=== PATIENT | male | born 1990 | race Caucasian/White ===

== ENCOUNTER 2020-06-23 18:33 | Observation (INO) | payer BC ==
[2020-06-23] MEDS ORDERED: Zofran 4 MG/2 ML VIAL IV ONE (18:47)
[2020-06-23] MEDS ORDERED: TORAdol 30 mg Injection IV ONE (18:47)
[2020-06-23] MEDS ORDERED: TORAdol 30 mg Injection ONE (18:48)
[2020-06-23] MEDS ORDERED: Zofran 4 MG/2 ML VIAL ONE (18:48)
--- NOTE | 2020-06-23 19:09 | ERPHSYRPT ---
- History of Present Illness Historian: patient Patient Subjective Stated Complaint: Abdominal pain Triage Nursing Assessment: Patient ambulated back to ED and transferred self to bed. Patient A+O X3. Patient's skin pink, warm and dry. Patient complains of right sided abdominal/flank pain 4/10 intermittent sharp, throbbing pain that started at 0400. Patient's abdomen soft and round with BS X4. Patient denies dysuria, urgency or frequency or blood in urine. Physician History: 29 yo wm w R flank pain x15 hrs which started as periumbilical pain and migrated. Pain described as pressure/stabbing. It is 4/10 at present and was up to 8/10. He has had nausea wo vomiting/ diarrhea/fever/dysuria/hematuria/melena/hematochezia/cough/coryza. Timing/Duration: other (15 hours) Activities at Onset: rest Quality: pressure, stabbing Abdominal Pain Onset Location: flank Pain Radiation: no radiation Severity of Pain-Max: severe Severity of Pain-Current: moderate Modifying Factors: Improves With: nothing Associated Symptoms: back, nausea, No chest pain, No diaphoresis, No diarrhea, No fever/chills, No fatigue, No headache, No heartburn, No loss of appetite, No neck pain, No rash, No shortness of breath, No syncope, No testicular pain, No vomiting, No weakness Previous symptoms: no prior history Allergies/Adverse Reactions: No Known Drug Allergies Allergy (Verified 06/23/20 18:42) Home Medications: Ergocalciferol (Vitamin D2) [Vitamin D2] 1 tab PO WEEKLY 06/23/20 [History] Hx Tetanus, Diphtheria Vaccination/Date Given: Yes (2009) Hx Influenza Vaccination/Date Given: Yes Hx Pneumococcal Vaccination/Date Given: No Immunizations Up to Date: Yes Travel Risk - International Travel Have you traveled outside of the country in past 3 weeks: No - Coronavirus Screening Are you exhibiting any of the following symptoms?: No Close contact with a COVID-19 positive Pt in past 14-21 Days: No - Review of Systems Constitutional: No Symptoms Eyes: No Symptoms Ears, Nose, & Throat: No Symptoms Respiratory: No Symptoms Cardiac: No Symptoms Abdominal/Gastrointestinal: Nausea, No Abdominal Pain, No Vomiting, No Diarrhea, No Constipation, No Hematemesis, No Hematochezia, No Melena, No Dysphagia, No Appetite Changes Genitourinary Symptoms: No Symptoms, Flank Pain Musculoskeletal: No Symptoms Skin: No Symptoms Neurological: No Symptoms Psychological: No Symptoms Endocrine: No Symptoms Hematologic/Lymphatic: No Symptoms Immunological/Allergic: No Symptoms - Past Medical History Pertinent Past Medical History: Yes Cardiac History: Arrhythmia - Past Surgical History Past Surgical History: Yes Other Surgical History: sinus surgery-age 4, Brain tumor removed Feb 2019 - Social History Smoking Status: Never smoker Exposure to second hand smoke: No Drug Use: none Patient Lives Alone: No Significant Family History: no pertinent family hx - Nursing Vital Signs Nursing Vital Signs: Initial Vital Signs Temperature 99.7 F 06/23/20 18:44 Pulse Rate 82 06/23/20 18:44 Respiratory Rate 18 06/23/20 18:44 Blood Pressure 138/87 06/23/20 18:44 O2 Sat by Pulse Oximetry 96 06/23/20 18:44 Pain Scale Pain Intensity 0 - Physical Exam General Appearance: no apparent distress Eye Exam: PERRL/EOMI, eyes nml inspection Ears, Nose, Throat Exam: normal ENT inspection, TMs normal, pharynx normal, moist mucous membranes Neck Exam: normal inspection, non-tender, supple, full range of motion, No meningismus, No mass, No Brudzinski, No Kernig's Respiratory Exam: normal breath sounds, lungs clear, airway intact, No respiratory distress Cardiovascular Exam: regular rate/rhythm, normal heart sounds, normal peripheral pulses, No murmur Gastrointestinal/Abdomen Exam: soft, normal bowel sounds, tenderness (Mild diffuse wo guarding or rebound) Back Exam: normal inspection, CVA tenderness Extremity Exam: normal inspection, normal range of motion Neurologic Exam: alert, oriented x 3, cooperative, dispensing operator II-XII nml as tested, normal mood/affect, nml station & gait, sensation nml, No motor deficits, No sensory deficit, No agitation Skin Exam: normal color, warm, dry, No rash Lymphatic Exam: No adenopathy SpO2 Interpretation: normal SpO2: 96 O2 Delivery: Room Air - Course Nursing assessment & vital signs reviewed: Yes - CT Exams Abdomen/Pelvis CT Interpretation: Discussed w/radiologist (Acute appendicitis), Tele- radiologist Report Ordered Tests: Active Orders 24 hr Category Date Time Status Bedrest with BRP/BSC ROUTINE Activity 06/23/20 21:59 Active Code Status Order ROUTINE Care 06/23/20 21:58 Active IV Care Q6H Care 06/23/20 21:58 Active IV Insertion STAT Care 06/23/20 18:45 Active Intake and Output Q12H Care 06/23/20 21:[address] in Observation ROUTINE Care 06/23/20 21:58 Active Vital Signs Q4H Care 06/23/20 21:58 Active NPO Diet 06/23/20 21:59 Active ABDOMEN AND PELVIS W/0 CONTRAS [CT] Stat Exams 06/23/20 19:36 Taken AMYLASE Stat Lab 06/23/20 19:15 Completed CBC W DIFF Stat Lab 06/23/20 19:15 Completed CBC W DIFF Urgent Lab 06/23/20 21:30 Ordered CMP Stat Lab 06/23/20 19:15 Completed CMP Urgent Lab 06/23/20 21:30 Ordered LIPASE Stat Lab 06/23/20 19:15 Completed PROTIME WITH INR AM.LAB Lab 06/24/20 04:00 Ordered UA W/RFX UR CULTURE Stat Lab 06/23/20 18:45 Completed Transfer Order Routine Transfer 06/23/20 Ordered Medication Summary Generic Name Dose Route Start Last Admin Trade Name Freq PRN Reason Stop Dose Admin Hydromorphone HCl 1 mg 06/23/20 21:58 Hydromorphone 1 Mg/Ml Injection IV 06/28/20 21:57 Q4H PRN PRN PAIN Sodium Chloride 1,000 mls @ 100 mls/hr 06/23/20 22:00 Sodium Chloride 0.9% 1000 Ml IV 07/23/20 21:59 .Q10H KAMILA Piperacillin Sod/Tazobactam 100 mls @ 200 mls/hr 06/24/20 00:00 Sod 3.375 gm/ Sodium Chloride IV 07/24/20 00:00 Q6HT KAMILA Ondansetron HCl 4 mg 06/23/20 21:58 Zofran 4 Mg/2 Ml Vial IV 07/23/20 21:57 Q6H PRN PRN NAUSEA/VOMITING Discontinued Medications Generic Name Dose Route Start Last Admin Trade Name Freq PRN Reason Stop Dose Admin Fentanyl Citrate 100 mcg 06/23/20 20:58 06/23/20 20:59 Sublimaze 100 Mcg/2 Ml IV 06/23/20 20:59 100 mcg STAT ONE Administration Fentanyl Citrate Confirm 06/23/20 20:58 Sublimaze 100 Mcg/2 Ml Administered 06/23/20 20:59 Dose 100 mcg .ROUTE .STK-MED ONE Piperacillin Sod/Tazobactam 100 mls @ 200 mls/hr 06/23/20 21:16 06/23/20 21:24 Sod 3.375 gm/ Sodium Chloride IV 06/23/20 21:45 200 mls/hr STAT ONE Administration Sodium Chloride Confirm 06/23/20 21:21 Sodium Chloride 100ml Mini-Bag Plus Administered 06/23/20 21:22 Dose 100 mls @ ud IV .STK-MED ONE Sodium Chloride 1,000 mls @ 999 mls/hr 06/23/20 22:11 06/23/20 22:12 Sodium Chloride 0.9% 1000 Ml IV 06/23/20 23:11 999 mls/hr .Q1H1M STA Administration Ketorolac Tromethamine 30 mg 06/23/20 18:47 06/23/20 18:51 Toradol 30 Mg Injection IV 06/23/20 18:48 30 mg STAT ONE Administration Ketorolac Tromethamine Confirm 06/23/20 18:48 Toradol 30 Mg Injection Administered 06/23/20 18:49 Dose 30 mg .ROUTE .STK-MED ONE Ondansetron HCl 4 mg 06/23/20 18:47 06/23/20 18:51 Zofran 4 Mg/2 Ml Vial IV 06/23/20 18:48 4 mg STAT ONE Administration Ondansetron HCl Confirm 06/23/20 18:48 Zofran 4 Mg/2 Ml Vial Administered 06/23/20 18:49 Dose 4 mg .ROUTE .STK-MED ONE Piperacillin Sod/Tazobactam Sod Confirm 06/23/20 21:20 Zosyn 3.375 Gm Vial Administered 06/23/20 21:21 Dose 3.375 gm IV .STK-MED ONE Lab/Rad Data: Laboratory Result Diagrams 06/23/20 19:15 06/23/20 19:15 Laboratory Results 06/23/20 06/23/20 06/23/20 Range/Units 21:35 19:15 19:15 WBC 14.3 H (4.0-10.5) K/mm3 RBC 4.93 (4.1-5.6) M/mm3 Hgb 14.9 (12.5-18.0) gm/dl Hct 45.4 (42-50) % MCV 92.1 (78-100) fl MCH 30.2 (26-32) pg MCHC 32.8 (32-36) g/dl RDW 12.6 (11.5-14.0) % Plt Count 264 (150-450) K/mm3 MPV 9.8 (7.5-11.0) fl Gran % 84.9 H (36.0-66.0) % Eos # (Auto) 0.02 (0-0.5) Absolute Lymphs (auto) 1.26 (1.0-4.6) Absolute Monos (auto) 0.87 (0.0-1.3) Lymphocytes % 8.8 L (24.0-44.0) % Monocytes % 6.1 (0.0-12.0) % Eosinophils % 0.1 (0.00-5.0) % Basophils % 0.1 (0.0-0.4) % Absolute Granulocytes 12.13 H (1.4-6.9) Basophils # 0.02 (0-0.4) Sodium 137 (137-145) mmol/L Potassium 3.7 (3.5-5.1) mmol/L Chloride 100 (98-107) mmol/L Carbon Dioxide 28 (22-30) mmol/L Anion Gap 13.2 (5-15) MEQ/L BUN 12 (9-20) mg/dL Creatinine 0.85 (0.66-1.25) mg/dL Estimated GFR > 60.0 ML/MIN Glucose 109 H (74-106) mg/dL Calcium 9.5 (8.4-10.2) mg/dL Total Bilirubin 1.40 H (0.2-1.3) mg/dL AST 31 (17-59) U/L ALT 35 (0-50) U/L Alkaline Phosphatase 116 (38-126) U/L Serum Total Protein 8.0 (6.3-8.2) g/dL Albumin 4.6 (3.5-5.0) g/dL Amylase 46 (30-110) U/L Lipase 32 (23-300) U/L Urine Color (YELLOW) Urine Appearance (CLEAR) Urine pH (5-6) Ur Specific [place] (1.005-1.025) Urine Protein (Negative) Urine Ketones (NEGATIVE) Urine Blood (0-5) Spencer/ul Urine Nitrite (NEGATIVE) Urine Bilirubin (NEGATIVE) Urine Urobilinogen (0-1) mg/dL Ur Leukocyte Esterase (NEGATIVE) Urine WBC (Auto) (0-5) /HPF Urine RBC (Auto) (0-2) /HPF U Epithel Cells (Auto) (FEW) /HPF Urine Bacteria (Auto) (NEGATIVE) /HPF Amorphous Crystals (NEGATIVE) /HPF Urine Mucus (Auto) (NEGATIVE) /HPF Urine Culture Reflexed (NO) Urine Glucose (NEGATIVE) mg/dL Influenza Type A Ag NEGATIVE (NEGATIVE) Influenza Type B Ag NEGATIVE (NEGATIVE) RSV (PCR) NEGATIVE (Negative) SARS-CoV-2 (PCR) POSITIVE A (NEGATIVE) 06/23/20 Range/Units 18:45 WBC (4.0-10.5) K/mm3 RBC (4.1-5.6) M/mm3 Hgb (12.5-18.0) gm/dl Hct (42-50) % MCV (78-100) fl MCH (26-32) pg MCHC (32-36) g/dl RDW (11.5-14.0) % Plt Count (150-450) K/mm3 MPV (7.5-11.0) fl Gran % (36.0-66.0) % Eos # (Auto) (0-0.5) Absolute Lymphs (auto) (1.0-4.6) Absolute Monos (auto) (0.0-1.3) Lymphocytes % (24.0-44.0) % Monocytes % (0.0-12.0) % Eosinophils % (0.00-5.0) % Basophils % (0.0-0.4) % Absolute Granulocytes (1.4-6.9) Basophils # (0-0.4) Sodium (137-145) mmol/L Potassium (3.5-5.1) mmol/L Chloride (98-107) mmol/L Carbon Dioxide (22-30) mmol/L Anion Gap (5-15) MEQ/L BUN (9-20) mg/dL Creatinine (0.66-1.25) mg/dL Estimated GFR ML/MIN Glucose (74-106) mg/dL Calcium (8.4-10.2) mg/dL Total Bilirubin (0.2-1.3) mg/dL AST (17-59) U/L ALT (0-50) U/L Alkaline Phosphatase (38-126) U/L Serum Total Protein (6.3-8.2) g/dL Albumin (3.5-5.0) g/dL Amylase (30-110) U/L Lipase (23-300) U/L Urine Color YELLOW (YELLOW) Urine Appearance CLOUDY (CLEAR) Urine pH 5.0 (5-6) Ur Specific [place] 1.030 (1.005-1.025) Urine Protein 30 (Negative) Urine Ketones TRACE (NEGATIVE) Urine Blood NEGATIVE (0-5) Spencer/ul Urine Nitrite NEGATIVE (NEGATIVE) Urine Bilirubin NEGATIVE (NEGATIVE) Urine Urobilinogen NEGATIVE (0-1) mg/dL Ur Leukocyte Esterase NEGATIVE (NEGATIVE) Urine WBC (Auto) 3-5 (0-5) /HPF Urine RBC (Auto) NONE (0-2) /HPF U Epithel Cells (Auto) NONE (FEW) /HPF Urine Bacteria (Auto) NONE (NEGATIVE) /HPF Amorphous Crystals FEW (NEGATIVE) /HPF Urine Mucus (Auto) SLIGHT (NEGATIVE) /HPF Urine Culture Reflexed NO (NO) Urine Glucose NEGATIVE (NEGATIVE) mg/dL Influenza Type A Ag (NEGATIVE) Influenza Type B Ag (NEGATIVE) RSV (PCR) (Negative) SARS-CoV-2 (PCR) (NEGATIVE) - Progress Progress: improved Progress Note: 06/23/20 19:52 Complete pain relief w 30mg IV Toradol 06/23/20 21:[address] Anders 06/23/20 21:56 Pain returned, so 100umg IV Fentanyl given w total relief of pain 3.375mg IV Zosyn given in ER which is ok w Dr. Anders 06/23/20 23:23 Pt's CV19 test+/Pt wo cough,fever,coryza,N,V, and diarrhea OK for CV19 unit per Dr. Myron Anders notified and ok w situation Discussed with : Drea Will see patient in: hospital (observation) Counseled pt/family regarding: lab results, diagnosis, rad results - Departure Departure Disposition: Observation Clinical Impression: Appendicitis Condition: Stable Critical Care Time: No Referrals: GISELE LION MD [Primary Care Provider] -
[2020-06-23 19:31] LABS: Amourphous Crystal FEW /HPF (NEGATIVE); Appearance CLOUDY (CLEAR); Bilirubin NEGATIVE (NEGATIVE); Blood NEGATIVE Ery/ul (0-5); Glucose NEGATIVE (NEGATIVE); Ketones TRACE (NEGATIVE); Leukocyte Esterase NEGATIVE (NEGATIVE); Mucus SLIGHT /HPF (NEGATIVE); Nitrite NEGATIVE (NEGATIVE); Protein,Urine Dip 30 (Negative); Urobilinogen NEGATIVE mg/dL (0-1)
[2020-06-23 19:46] LABS: Absolute Neutrophil Ct (ANC) 12.13 (1.4-6.9); BASOPHIL % 0.1 % (0.0-0.4); Basophil (Absolute #) 0.02 (0-0.4); Eosinophil % 0.1 % (0.00-5.0); Eosinophil (Absolute #) 0.02 (0-0.5); Hematocrit 45.4 % (42-50); Hemoglobin 14.9 gm/dl (12.5-18.0); Lymphocyte (Absolute #) 1.26 (1.0-4.6); Lymphocytes % 8.8 % (24.0-44.0); Mean Cell Volume 92.1 fl (78-100); Mean Corpuscular Hemoglobin 30.2 pg (26-32); Mean Corpuscular Hgb Concent. 32.8 g/dl (32-36); Mean Platelet Volume 9.8 fl (7.5-11.0); Monocyte (Absolute #) 0.87 (0.0-1.3); Monocytes % 6.1 % (0.0-12.0); Neutrophil % 84.9 % (36.0-66.0); Platelet Count 264 K/mm3 (150-450); Red Blood Count 4.93 M/mm3 (4.1-5.6); Red Cell Distribution Width 12.6 % (11.5-14.0); White Blood Count 14.3 K/mm3 (4.0-10.5)
[2020-06-23 19:49] LABS: ALBUMIN 4.6 g/dL (3.5-5.0); ALKALINE PHOSPHATASE 116 U/L (38-126); AMYLASE 46 U/L (30-110); ANION GAP 13.2 MEQ/L (5-15); BLOOD UREA NITROGEN 12 mg/dL (9-20); CHLORIDE 100 mmol/L (98-107); Calcium 9.5 mg/dL (8.4-10.2); Carbon Dioxide 28 mmol/L (22-30); Creatinine 1 0.85 mg/dL (0.66-1.25); EST GLOMERULAR FILTRATION RATE > 60.0 ML/MIN; Glucose 109 mg/dL (74-106); LIPASE 32 U/L (23-300); Potassium 3.7 mmol/L (3.5-5.1); SGOT/AST 31 U/L (17-59); SGPT/ALT 35 U/L (0-50); SODIUM 137 mmol/L (137-145)
[2020-06-23] MEDS ORDERED: SUBLIMAZE 100 MCG/2 ML ONE (20:58)
[2020-06-23] MEDS ORDERED: SUBLIMAZE 100 MCG/2 ML IV ONE (20:58)
[2020-06-23] MEDS ORDERED: Zosyn 3.375 GM Vial 3.375 GM in Sodium Chloride 100ML MINI-BAG PLUS 100 ML IV ONE (21:16)
[2020-06-23] MEDS ORDERED: Zosyn 3.375 GM Vial IV ONE (21:20)
[2020-06-23] MEDS ORDERED: Sodium Chloride 100ML MINI-BAG PLUS 100 ML IV ONE (21:21)
[2020-06-23] MEDS ORDERED: Hydromorphone 1 mg/ml Injection IV PRN (21:58)
[2020-06-23] MEDS ORDERED: Zofran 4 MG/2 ML VIAL IV PRN (21:58)
[2020-06-23] MEDS ORDERED: Sodium Chloride 0.9% 1000 ML 1,000 ML IV SCH (22:00)
[2020-06-23] MEDS ORDERED: Sodium Chloride 0.9% 1000 ML 1,000 ML IV STA (22:11)
[2020-06-23 22:23] LABS: INFLUENZA A NEGATIVE (NEGATIVE); INFLUENZA B NEGATIVE (NEGATIVE); RESPIRATORY SYNCTIAL VIRUS NEGATIVE (Negative)
[2020-06-24] MEDS ORDERED: Zosyn 3.375 GM Vial IV ONE (02:49)
[2020-06-24] MEDS ORDERED: Sodium Chloride 100ML MINI-BAG PLUS 100 ML IV ONE (02:50)
[2020-06-24] MEDS: Zosyn 3.375 GM Vial 3.375 GM in Sodium Chloride 100ML MINI-BAG PLUS 100 ML IV SCH ×3 (04:06)
[2020-06-24 05:53] LABS: Absolute Neutrophil Ct (ANC) 13.14 (1.4-6.9); BASOPHIL % 0.1 % (0.0-0.4); Basophil (Absolute #) 0.02 (0-0.4); Eosinophil (Absolute #) 0 (0-0.5); Hematocrit 42.2 % (42-50); Hemoglobin 13.5 gm/dl (12.5-18.0); Lymphocyte (Absolute #) 1.13 (1.0-4.6); Lymphocytes % 7.4 % (24.0-44.0); Mean Cell Volume 93.2 fl (78-100); Mean Corpuscular Hemoglobin 29.8 pg (26-32); Mean Platelet Volume 9.4 fl (7.5-11.0); Monocyte (Absolute #) 0.99 (0.0-1.3); Monocytes % 6.5 % (0.0-12.0); Platelet Count 215 K/mm3 (150-450); Red Blood Count 4.53 M/mm3 (4.1-5.6); Red Cell Distribution Width 12.5 % (11.5-14.0); White Blood Count 15.3 K/mm3 (4.0-10.5)
[2020-06-24 05:57] LABS: INR 1.39 (0.8-3.0); PROTIME 15.8 SECONDS (8.83-12.87)
[2020-06-24 06:00] LABS: ALKALINE PHOSPHATASE 93 U/L (38-126); ANION GAP 10.6 MEQ/L (5-15); BLOOD UREA NITROGEN 10 mg/dL (9-20); CHLORIDE 103 mmol/L (98-107); Calcium 8.8 mg/dL (8.4-10.2); Carbon Dioxide 24 mmol/L (22-30); Creatinine 1 0.93 mg/dL (0.66-1.25); EST GLOMERULAR FILTRATION RATE > 60.0 ML/MIN; Glucose 157 mg/dL (74-106); Potassium 3.8 mmol/L (3.5-5.1); SGOT/AST 25 U/L (17-59); SGPT/ALT 27 U/L (0-50); SODIUM 135 mmol/L (137-145); Total Protein 6.9 g/dL (6.3-8.2)
[2020-06-24] MEDS ORDERED: MEFOXIN 2 GM PREMIX** 2 GM/50 ML ML IV SCH (06:00)
[2020-06-24 06:34] VITALS: O2SAT 94
--- NOTE | 2020-06-24 07:23 | XRAY ---
Indication: Right abdomen pain. Multiple contiguous axial images obtained through the abdomen and pelvis without contrast. Comparison: None Lung bases are clear. Heart is not enlarged. Noncontrasted stomach and bowel loops appear nonobstructed. Prominent appendix up to 16 mm in diameter with periappendiceal stranding and small appendicolith near the base favoring acute appendicitis. No free fluid/air. Mild diffuse fatty liver. Remaining liver, gallbladder, pancreas, spleen, adrenal glands, kidneys, ureters, bladder, and aorta appear unremarkable for noncontrast exam. Osseous structures intact. Impression: 1. CT findings as detailed favoring acute appendicitis. No complications. 2. Incidental fatty liver. Comment: Preliminary interpretation was made by [facility]. No critical discrepancy.
[2020-06-24 08:09] VITALS: BP 129/69; PULSE 105
[2020-06-24] MEDS ORDERED: Zosyn 3.375 GM Vial 3.375 GM in Sodium Chloride 100ML MINI-BAG PLUS 100 ML IV SCH (12:00)
--- NOTE | 2020-07-02 08:19 | DS ---
ADMISSION DIAGNOSIS: Acute appendicitis. DISCHARGE DIAGNOSES: 1) ACUTE APPENDICITIS. 2) COVID POSITIVE. PROCEDURES: None performed at [facility] other than diagnostic CT scan. HOSPITAL COURSE: The patient presented with signs and symptoms consistent with appendicitis. A CT scan was obtained by emergency room physician. I was called. He had a diagnosis of acute appendicitis. He was admitted to the hospital and he was going to undergo surgical intervention there but his COVID test returned positive and there is a COVID floor for taking care of medical issues but they are not a surgical specificity to COVID at [facility]. He was transferred to [facility]. He was operated on that morning following the night of admission. Acute appendicitis was present. He did well and was able to be discharged that night at [facility]. Again, only diagnostic here at [facility]. Surgical intervention was performed at [facility] after transfer in a COVID designated operating room.
== END 2020-06-24 08:30 | disposition home or self-care (01) ==
LOC: ED 18:33 → MED SURG 06-24 00:32
PROVIDERS: ADMIT Surgery; ATTEND Surgery
DX: K35.80 Unspecified acute appendicitis (principal); R10.31 Right lower quadrant pain; R11.0 Nausea; U07.1 COVID-19
CPT/HCPCS: 0241U; 36000; 36415; 74176; 80053; 81001; 82150; 83690; 85025; 85610; 96374; 96375; 99284; G0378; J1170; J1885; J2405; J3010